=== PATIENT | male | born 1955 | race Caucasian/White ===

== ENCOUNTER 2017-06-09 12:51 | Inpatient (IN) | payer BC ==
[~2017-06-09] VITALS: Ht 180.3 cm; Wt 102.0 kg
[~2017-06-09 12:51] MED LIST: BUFFERED ASPIR325 M1 PO; FOLIC ACID0.4 MG PO; IRON325 M1 PO; NO HOME MEDICATIONS; VITAMIN C500 MG PO
[2017-07-23 11:45] LABS: HIV 1/2 Antibodies Non-Reactive; HIV-1p24 Antigen Non-Reactive
[2017-08-03] VITALS (11 sets, daily range): BP systolic 105–166; BP diastolic 76–87; PULSE 17–97; TEMP 97.2–98.9
[2017-08-04] VITALS (7 sets, daily range): BP systolic 114–150; BP diastolic 60–83; PULSE 66–95; TEMP 97.5–98.2
[2017-08-04 04:30] LABS: HEMOGLOBIN 12.7 g/dl (13.5-18.0)
[2017-08-04 04:34] LABS: HEMATOCRIT 36.8 % (42.0-52.0)
[2017-08-05 03:59] VITALS: BP 121/66; PULSE 83; TEMP 97.5
[2017-08-05 06:23] LABS: HEMATOCRIT 37.1 % (42.0-52.0); HEMOGLOBIN 12.5 g/dl (13.5-18.0)
[2017-08-05 07:19] VITALS: BP 105/62; PULSE 87; TEMP 98.6
== END 2017-08-05 11:00 | disposition home or self-care (01) | DRG 470 ==
LOC: JCC 08-03 05:09 → SDCO 08-03 07:30 → EDSTATUS 08-03 07:30 → SURG 08-05 09:58 → JCC 08-05 09:58
PROVIDERS: Orthopaedic Surgery; Urology
PROC: 0SRC0J9 Replacement of Right Knee Joint with Synthetic Substitute, Cemented, Open Approach (ICD-10-PCS; principal; 2017-08-03 07:30)
PROC: 0T9B70Z Drainage of Bladder with Drainage Device, Via Natural or Artificial Opening (ICD-10-PCS; 2017-08-03 07:30)
DX: M17.11 Unilateral primary osteoarthritis, right knee (principal); Z88.0 Allergy status to penicillin; Z85.46 Personal history of malignant neoplasm of prostate
CPT/HCPCS: A9284; C1713; C1776; J0690; J1100; J1885; J2250; J2405; J2704; J3010; J7120

== ENCOUNTER → 2017-07-23 | Outpatient (CLI) | payer BC | LOC: COL.LAB 10:26 | DX: Z01.89 Encounter for other specified special examinations (principal) ==